=== PATIENT | female | born 1955 | race Caucasian/White ===

== ENCOUNTER → 2020-08-10 12:50 | Outpatient (BNVA) | payer OTHER, SELFPAY | PROVIDERS: PCP Internal Medicine; Referring Provider Internal Medicine; Visit Provider Nurse Practitioner Family | DX: K21.9 Gastro-esophageal reflux disease without esophagitis (principal) | CPT/HCPCS: 99212 ==

== ENCOUNTER → 2020-09-07 12:29 | Outpatient (BNVA) | payer SELFPAY | PROVIDERS: PCP Internal Medicine; Visit Provider Nurse Practitioner Family | DX: Z76.89 Persons encountering health services in other specified circumstances (principal) ==

== ENCOUNTER 2020-09-15 09:47 | Outpatient (REF) | payer OTHER, SELFPAY ==
[2020-09-15 11:22] LABS: Hemoglobin 13.2 g/dl (12.0-16.0); Mean Corpuscular HGB Conc 32.2 g/dl (31.0-35.0); Mean Corpuscular Hemoglobin 30.3 pg (27.0-33.0); Mean Corpuscular Volume 94.3 fL (80-98); Mean Platelet Volume 9.7 fL (9.4-12.3); Platelet Count 239 X10*3/uL (160-400); Red Blood Count 4.35 X10*6/uL (4.20-5.50); Red Cell Distribution Width 11.7 % (11.0-16.0); White Blood Count 6.3 X10*3/uL (4.8-10.8)
[2020-09-15 11:30] LABS: Glucose Urine UA NEG (NEG); Leukocyte Esterase Urine 1+ (NEG); Nitrite Urine NEG (NEG); Specific Gravity - Urine >= 1.030 (1.005-1.025); Urine Blood 2+ (NEG); Urine Ketones NEG (NEG); Urine Protein NEG (NEG-TRACE)
[2020-09-15 11:32] LABS: Appearance Urine HAZY; Color Urine YELLOW
[2020-09-15 11:38] LABS: Alanine Aminotransferase 29 U/L (0-31); Albumin Level 4.4 g/dL (3.5-5.0); Alkaline Phosphatase 67 U/L (39-117); Anion Gap 12 (12-20); Aspartate Amino Transferase 24 U/L (5-31); Bilirubin Total 0.7 mg/dL (0.0-1.0); Blood Urea Nitrogen 13 mg/dL (9-16); Calcium 8.8 mg/dL (8.4-10.2); Carbon Dioxide 27 mmol/L (22-29); Chloride 106 mmol/L (96-108); Cholesterol 211 mg/dL; Estimated Glomerular Filt Rate > 60; Glucose Fasting 102 mg/dL (60-99); HDL Cholesterol 71 mg/dL; LDL Cholesterol Calculated 106 mg/dl; Potassium 4.1 mmol/l (3.3-5.1); Sodium 141 mmol/L (135-145); Total Protein 6.9 g/dL (6.5-8.0); Triglycerides 172 mg/dL
[2020-09-15 11:48] LABS: Mucus Urine 3+ /LPF; Squamous Epithelial Cell Urine 2+ /LPF
[2020-09-15 11:58] LABS: Thyroid Stimulating Hormone 0.64 uIU/mL (0.32-4.0)
== END 2020-09-15 09:48 | disposition home or self-care (01) ==
LOC: HO.HMGCLDS 09:47
PROVIDERS: PCP Internal Medicine; Visit Provider Internal Medicine
DX: R07.2 Precordial pain (principal); E78.2 Mixed hyperlipidemia; I10 Essential (primary) hypertension; K21.9 Gastro-esophageal reflux disease without esophagitis; M54.16 Radiculopathy, lumbar region
CPT/HCPCS: 36415; 80053; 80061; 81001; 84443; 85027

== ENCOUNTER → 2020-12-16 15:38 | Outpatient (BNVA) | payer OTHER, SELFPAY | PROVIDERS: PCP Internal Medicine; Visit Provider Nurse Practitioner Family ==

== ENCOUNTER 2021-01-28 11:53 | Outpatient (REF) | payer MEDICARE, MEDICAID, SELFPAY ==
--- NOTE | ~2021-01-28 | US_ITS ---
EXAMINATION: US RETROPERITONEAL LIMITED (RENAL ONLY) CLINICAL INFORMATION: Nephrolithiasis. COMPARISON: Renal ultrasound 02/11/2020. Ultrasound kidneys and bladder 07/24/2019. TECHNIQUE: Real-time imaging of the kidneys. FINDINGS: RIGHT KIDNEY: 12.4 x 5.4 x 5.8 cm (SAG x AP x TRV). The kidney is normal in size, contour, and echogenicity. Renal cortical thickness is normal. No calculi or focal parenchymal lesions. No hydronephrosis. LEFT KIDNEY: 12.4 x 5.2 x 4.9 cm (SAG x AP x TRV). The kidney is normal in size, contour, and echogenicity. Renal cortical thickness is normal. There is a 1.1 x 0.7 x 1.3 cm peripelvic cyst. No renal calculi or hydronephrosis. US/US renal BI IMPRESSION: No stone seen. Small left renal cyst.
== END 2021-01-28 11:54 | disposition home or self-care (01) ==
LOC: HO.HMGCX 11:53
PROVIDERS: PCP Internal Medicine; Visit Provider Urology
DX: N20.0 Calculus of kidney (principal)
CPT/HCPCS: 76775

== ENCOUNTER 2021-02-26 10:19 | Outpatient (REF) | payer MEDICARE, MEDICAID, SELFPAY ==
[2021-02-26 11:41] LABS: Glucose Urine UA NEG (NEG); Leukocyte Esterase Urine TRACE (NEG); Nitrite Urine NEG (NEG); Specific Gravity - Urine >= 1.030 (1.005-1.025); Urine Blood 2+ (NEG); Urine Ketones NEG (NEG); Urine Protein TRACE MG/DL (NEG-TRACE)
[2021-02-26 11:46] LABS: Appearance Urine HAZY; Color Urine YELLOW
[2021-02-26 11:52] LABS: Hematocrit 41.6 % (37-47); Hemoglobin 13.3 g/dl (12.0-16.0); Mean Corpuscular Hemoglobin 30.2 pg (27.0-33.0); Mean Corpuscular Volume 94.3 fL (80-98); Mean Platelet Volume 9.5 fL (9.4-12.3); Platelet Count 270 X10*3/uL (160-400); Red Blood Count 4.41 X10*6/uL (4.20-5.50); Red Cell Distribution Width 12.1 % (11.0-16.0); White Blood Count 6.6 X10*3/uL (4.8-10.8)
[2021-02-26 12:02] LABS: Alanine Aminotransferase 32 U/L (0-31); Albumin Level 4.3 g/dL (3.5-5.0); Alkaline Phosphatase 74 U/L (39-117); Anion Gap 15 (12-20); Aspartate Amino Transferase 26 U/L (5-31); Bilirubin Total 0.6 mg/dL (0.0-1.0); Blood Urea Nitrogen 14 mg/dL (9-16); Calcium 9.4 mg/dL (8.4-10.2); Carbon Dioxide 22 mmol/L (22-29); Chloride 109 mmol/L (96-108); Cholesterol 272 mg/dL; Estimated Glomerular Filt Rate > 60; Glucose Fasting 103 mg/dL (60-99); HDL Cholesterol 75 mg/dL; LDL Cholesterol Calculated 156 mg/dl; Potassium 4.1 mmol/L (3.3-5.1); Sodium 142 mmol/L (135-145); Total Protein 6.9 g/dL (6.5-8.0); Triglycerides 206 mg/dL
[2021-02-26 12:16] LABS: Bacteria Urine TRACE /LPF; Squamous Epithelial Cell Urine 4+ /LPF
== END 2021-02-26 10:20 | disposition home or self-care (01) ==
LOC: HO.HMGCLDS 10:19
PROVIDERS: PCP Internal Medicine; Visit Provider Internal Medicine
DX: E78.00 Pure hypercholesterolemia, unspecified (principal); I10 Essential (primary) hypertension
CPT/HCPCS: 36415; 80053; 80061; 81001; 84443; 85027

== ENCOUNTER 2021-07-22 09:30 | Outpatient (REF) | payer MEDICARE, MEDICAID, SELFPAY ==
--- NOTE | ~2021-07-22 | XR_ITS ---
EXAMINATION: XR HIP, LEFT CLINICAL INFORMATION: Left hip strain/sprain COMPARISON: 06/26/2018 TECHNIQUE: Two views of the left hip. FINDINGS: No fracture or dislocation. The femoral head articulates appropriately with its acetabulum. There is narrowing of the joint space with sclerosis and osteophyte formation. The visualized left pelvis is intact. XR/XR hip LT min 2V IMPRESSION: Moderate degenerative changes at the left hip which are similar to previous.
[2021-07-22 10:39] LABS: Alkaline Phosphatase 65 U/L (39-117)
[2021-07-22 10:46] LABS: Cortisol Random 1.4 ug/dL
[2021-07-23 12:06] LABS: CA-125 39 U/mL (<35)
[2021-07-26 12:41] LABS: Calcium, Ionized 5.3 mg/dL (4.8-5.6)
[2021-07-28 17:02] LABS: Adrenocorticotropic Hormone <5 pg/mL (6-50)
== END 2021-07-22 09:31 | disposition home or self-care (01) ==
LOC: HO.LAB 09:30
PROVIDERS: PCP Internal Medicine; Visit Provider Neuromusculoskeletal Medicine, Sports Medicine
DX: S73.102D Unspecified sprain of left hip, subsequent encounter (principal); R53.0 Neoplastic (malignant) related fatigue; R51.9 Headache, unspecified
CPT/HCPCS: 36415; 73502; 82024; 82330; 82533; 84075; 85610; 86304

== ENCOUNTER 2021-07-27 09:55 | Outpatient (REF) | payer MEDICARE, MEDICAID, SELFPAY ==
[2021-07-27 11:30] LABS: Appearance Urine HAZY; Color Urine YELLOW; Glucose Urine UA NEG (NEG); Leukocyte Esterase Urine NEG (NEG); MANUAL DIFF FLAG NO; Nitrite Urine NEG (NEG); Specific Gravity - Urine 1.025 (1.005-1.025); UACC Culture Trigger NO; Urine Blood 2+ (NEG); Urine Ketones NEG (NEG); Urine Protein NEG (NEG-TRACE)
[2021-07-27 11:31] LABS: Basophils Percent Auto 0.2 % (0-2); Eosinophils Absolute Auto 0.1 X10*3/uL (0.0-0.4); Eosinophils Percent Auto 1.5 % (0-4); Hemoglobin 13.3 g/dl (12.0-16.0); Imm Gran Abs Auto 0.05 X10*3/uL (0.00-0.03); Imm Gran Pct Auto 0.6 % (0.0-0.4); Lymphocytes Absolute Auto 2.9 X10*3/uL (1.2-4.9); Lymphocytes Percent Auto 34.4 % (20-40); Mean Corpuscular HGB Conc 32.4 g/dl (31.0-35.0); Mean Corpuscular Hemoglobin 30.9 pg (27.0-33.0); Mean Corpuscular Volume 95.3 fL (80-98); Mean Platelet Volume 9.6 fL (9.4-12.3); Monocytes Absolute Auto 0.6 X10*3/uL (0.1-1.2); Monocytes Percent Auto 6.8 % (2-11); Neutrophils Absolute Auto 4.8 X10*3/uL (2.0-8.3); Neutrophils Percent Auto 56.5 % (45-73); Platelet Count 252 X10*3/uL (160-400); Red Cell Distribution Width 12.3 % (11.0-16.0); White Blood Count 8.4 X10*3/uL (4.8-10.8)
[2021-07-27 11:56] LABS: Bacteria Urine 1+ /LPF; Mucus Urine 2+ /LPF; Squamous Epithelial Cell Urine 3+ /LPF
[2021-07-27 12:04] LABS: Alanine Aminotransferase 24 U/L (0-31); Albumin Level 3.9 g/dL (3.5-5.0); Alkaline Phosphatase 59 U/L (39-117); Anion Gap 9 (12-20); Aspartate Amino Transferase 18 U/L (5-31); Bilirubin Total 0.6 mg/dL (0.0-1.0); Blood Urea Nitrogen 14 mg/dL (9-16); Calcium 9.2 mg/dL (8.4-10.2); Carbon Dioxide 29 mmol/L (22-29); Chloride 107 mmol/L (96-108); Cholesterol 183 mg/dL; Estimated Glomerular Filt Rate > 60; Glucose Fasting 95 mg/dL (60-99); HDL Cholesterol 66 mg/dL; LDL Cholesterol Calculated 93 mg/dl; Potassium 4.2 mmol/L (3.3-5.1); Sodium 141 mmol/L (135-145); Total Protein 6.1 g/dL (6.5-8.0); Triglycerides 120 mg/dL
== END 2021-07-27 09:56 | disposition home or self-care (01) ==
LOC: HO.HMGCLDS 09:55
PROVIDERS: PCP Internal Medicine; Visit Provider Internal Medicine
DX: E78.00 Pure hypercholesterolemia, unspecified (principal); I10 Essential (primary) hypertension
CPT/HCPCS: 36415; 80053; 80061; 81001; 85025

== ENCOUNTER 2021-08-10 21:05 | Emergency (ER) | payer MEDICARE, MEDICAID, SELFPAY ==
--- NOTE | ~2021-08-10 | XR_ITS ---
EXAMINATION: XR CHEST CLINICAL INFORMATION: Chest pain COMPARISON: 01/28/2019 TECHNIQUE: PA view of the chest FINDINGS: There is a prominence of the epicardial fat pad. No consolidation, pneumothorax, or pleural effusion. Cardiac and mediastinal contours are normal. Mild calcific atherosclerosis in the thoracic aorta Pulmonary vasculature is unremarkable. Osseous structures are unremarkable. XR/XR chest 1V IMPRESSION: No acute cardiopulmonary findings
--- NOTE | 2021-08-10 21:35 | ECG_ITS ---
Test Reason : CHEST PAIN Blood Pressure : / mmHG Vent. Rate : 057 BPM Atrial Rate : 057 BPM P-R Int : 160 ms QRS Dur : 088 ms QT Int : 464 ms P-R-T Axes : 043 050 069 degrees QTc Int : 451 ms Sinus bradycardia Nonspecific ST abnormality Abnormal ECG When compared with ECG of 02-JAN-2018 19:52, No significant change was found Referred By: Generic ED Physician Electronically Signed By:SANDRINE ACUÑA MD
[2021-08-10 21:54] LABS: MANUAL DIFF FLAG NO
[2021-08-10 21:55] LABS: Basophils Percent Auto 0.3 % (0-2); Eosinophils Percent Auto 0.4 % (0-4); Hematocrit 39.8 % (37.0-47.0); Hemoglobin 13.3 g/dl (12.0-16.0); Imm Gran Abs Auto 0.03 X10*3/uL (0.00-0.03); Imm Gran Pct Auto 0.3 % (0.0-0.4); Lymphocytes Absolute Auto 1.7 X10*3/uL (1.2-4.9); Lymphocytes Percent Auto 16.9 % (20-40); Mean Corpuscular HGB Conc 33.4 g/dl (31.0-35.0); Mean Corpuscular Hemoglobin 31.4 pg (27.0-33.0); Mean Corpuscular Volume 93.9 fL (80.0-98.0); Mean Platelet Volume 9.1 fL (9.4-12.3); Monocytes Absolute Auto 0.5 X10*3/uL (0.1-1.2); Neutrophils Absolute Auto 7.8 x10*3/uL (2.0-8.3); Neutrophils Percent Auto 77.1 % (45-73); Platelet Count 215 X10*3/uL (160-400); Red Blood Count 4.24 X10*6/uL (4.20-5.50); Red Cell Distribution Width 12.3 % (11.0-16.0); White Blood Count 10.1 X10*3/uL (4.8-10.8)
[2021-08-10 22:03] VITALS: BP 158/71; PULSE 64; RESP 22; TEMP 36.6; O2SAT 96; BMI 28.7
[2021-08-10 22:07] LABS: Anion Gap 15 (12-20); Blood Urea Nitrogen 14 mg/dL (9-16); Calcium 9.1 mg/dL (8.4-10.2); Carbon Dioxide 23 mmol/L (22-29); Chloride 106 mmol/L (96-108); Estimated Glomerular Filt Rate > 60; Glucose Random 129 mg/dL (60-115); Potassium 3.9 mmol/L (3.3-5.1); Sodium 140 mmol/L (135-145)
[2021-08-10 22:14] LABS: Troponin-I High Sensitivity < 3.5 ng/L (<3.5-17.0)
--- NOTE | 2021-08-10 22:15 | ED.CHESTPAIN ---
HPI - Chest Pain General Chief Complaint: Chest Pain Stated Complaint: cp Time Seen by Provider: 08/10/21 22:15 Source: patient Mode of arrival: ambulatory Limitations: no limitations History of Present Illness HPI narrative: Patient is 66 years old history of coronary artery disease status post stent placement in 2014 with history of GERD supposed to get endoscopy but she missed the appointment on omeprazole had stress test 2 years ago everything was fine it comes here after she had drinks last night since morning 10:00 o'clock been complaining of epigastric pain going to the mid chest no radiation of pain to the back to the jaw or to the left arm , mild shortness of breath+ no cough no fever no chills pain gets worse when she eats no black stools Related Data Previous Rx's Medication Instructions Recorded meloxicam 15 mg tablet 15 mg PO DAILY #30 tab 10/06/20 trazodone 50 mg tablet 50 mg PO BEDTIME PRN #90 tab 10/08/20 lidocaine 5 % topical patch 1 patch TOPICAL DAILY #30 ea 11/17/20 (Lidoderm) amlodipine 5 mg tablet 5 mg PO DAILY #90 tab 11/19/20 atorvastatin 80 mg tablet 80 mg PO DAILY #90 tab 11/19/20 omeprazole 20 mg capsule,delayed 20 mg PO BID #180 cap 11/19/20 release ropinirole 0.5 mg tablet 0.5 mg PO BEDTIME #90 tab 11/19/20 metoprolol succinate 50 mg 50 mg PO DAILY #90 tab 01/28/21 tablet,extended release 24 hr pyridoxine (vitamin B6) 100 mg 100 mg PO .QD #90 tab 07/29/21 tablet amoxicillin 500 mg tablet 1,000 mg PO BID #56 tab 08/11/21 clarithromycin 500 mg tablet 500 mg PO BID #28 tab 08/11/21 omeprazole 40 mg capsule,delayed 40 mg PO DAILY #30 cap 08/11/21 release sucralfate 1 gram tablet 1 g PO TID #90 tab 08/11/21 Allergies Allergy/AdvReac Type Severity Reaction Status Date / Time acetaminophen [From VICODIN] Allergy Unknown UNK Verified 08/10/21 22:02 hydrocodone [From VICODIN] Allergy Unknown UNK Verified 08/10/21 22:02 oxycodone [From PERCOCET] Allergy Unknown UNK Verified 08/10/21 22:02 Review of Systems Review of Systems: Yes all other systems are reviewed and are negative FOR[facility]LY [facility] Past Medical History Medical History Annual physical exam Gastroesophageal reflux disease GERD (gastroesophageal reflux disease) HTN (hypertension) Hypercholesteremia Lumbar disc disease Osteoarthritis, hip, bilateral Surgical History H/O colonoscopy Hx of cholecystectomy Hx of cholecystectomy Family History Family History Father High blood pressure Degenerative cervical spinal stenosis Heartburn Mother Heart problem Sister High blood pressure Daughter No problems noted. Daughter No problems noted. Daughter No problems noted. Social History Social History Household Members: Spouse Housing: House Alcohol intake: former Patient Tobacco Use Status: Never used Tobacco Years Smoked: 30 years Use of substances other than those prescribed or required for medical reasons: No Advance Directives: No Advance Directives Information Provided: Yes Physical Exam Vital Signs: Vital Signs: Last Vital Signs Temp 97.8 F 08/10/21 22:03 Pulse 64 08/10/21 22:03 Resp 22 H 08/10/21 22:03 BP 158/71 H 08/10/21 22:03 Pulse Ox 96 08/10/21 22:03 Body Mass Index 28.7 Appearance: Alert. Oriented X3. No acute distress. Eyes: No pallor or icterus ENT: Pharynx normal. Oral Mucosa moist Neck: Normal inspection. Neck supple. CVS: Normal heart rate and rhythm. Pulses normal. Respiratory: No respiratory distress. Equal air entry bilateral, no wheezing/rales/rhonchi Abdomen: Soft and epigastric tenderness++ Bowel sounds are present, no mass palpable, no CVA tenderness Skin: Skin warm and dry. Normal skin color. Normal skin turgor. Extremities: No lower extremity edema. No calf tenderness Neuro: Oriented X 3. No motor deficit. MDM - Chest Pain MDM Narrative Medical decision making narrative: . Atypical chest pain with alcohol use with history of gastritis pain likely from gastritis questionable H pylori infection. Initial troponin is negative will repeat a troponin 2 hours. EKG without any ischemic changes And00:42: Repeat high sensitive troponin negative for any acute change patient is sleeping now no chest pain felt better after Maalox. Will discharge patient home on treatment for H pylori as suspected Lab Data Attestation: I reviewed the patient's lab results. Result diagrams: 08/10/21 21:49 08/10/21 21:49 Labs: Lab Results 08/10/21 08/10/21 08/10/21 Range/Units 21:49 21:49 21:49 WBC 10.1 (4.8-10.8) X10*3/uL RBC 4.24 (4.20-5.50) X10*6/uL Hgb 13.3 (12.0-16.0) g/dl Hct 39.8 (37.0-47.0) % MCV 93.9 (80.0-98.0) fL MCH 31.4 (27.0-33.0) pg MCHC 33.4 (31.0-35.0) g/dl RDW 12.3 (11.0-16.0) % Plt Count 215 (160-400) X10*3/uL MPV 9.1 L (9.4-12.3) fL Immature Gran % (Auto) 0.3 (0.0-0.4) % Neut % (Auto) 77.1 H (45-73) % Lymph % (Auto) 16.9 L (20-40) % Mcdonough % (Auto) 5.0 (2-11) % Eos % (Auto) 0.4 (0-4) % Baso % (Auto) 0.3 (0-2) % Lymph # (Auto) 1.7 (1.2-4.9) X10*3/uL Mcdonough # (Auto) 0.5 (0.1-1.2) X10*3/uL Eos # (Auto) 0.0 (0.0-0.4) X10*3/uL Baso # (Auto) 0.0 (0.0-0.2) X10*3/uL Abs Immat Gran (auto) 0.03 (0.00-0.03) X10*3/uL Absolute Neuts (auto) 7.8 (2.0-8.3) x10*3/uL Absolute Nucleated RBC 0.000 (0.0-0.012) X10*3/uL Nucleated RBC % (auto) 0.0 (0.0-0.2) /100WBC Sodium 140 (135-145) mmol/L Potassium 3.9 (3.3-5.1) mmol/L Chloride 106 (96-108) mmol/L Carbon Dioxide 23 (22-29) mmol/L Anion Gap 15 (12-20) BUN 14 (9-16) mg/dL Creatinine 0.81 (0.5-1.4) mg/dL Estim Creat Clear Calc TNP Estimated GFR > 60 Random Glucose 129 H (60-115) mg/dL Calcium 9.1 (8.4-10.2) mg/dL Total Bilirubin 0.7 (0.0-1.0) mg/dL Direct Bilirubin 0.2 (0.0-0.5) mg/dL AST 31 D (5-31) U/L ALT 49 H (0-31) U/L Alkaline Phosphatase 67 (39-117) U/L Troponin I High Sens < 3.5 (<3.5-17.0) ng/L Total Protein 6.7 (6.5-8.0) g/dL Albumin 4.1 (3.5-5.0) g/dL Lipase 15 (8-78) U/L 08/11/21 Range/Units 00:06 WBC (4.8-10.8) X10*3/uL RBC (4.20-5.50) X10*6/uL Hgb (12.0-16.0) g/dl Hct (37.0-47.0) % MCV (80.0-98.0) fL MCH (27.0-33.0) pg MCHC (31.0-35.0) g/dl RDW (11.0-16.0) % Plt Count (160-400) X10*3/uL MPV (9.4-12.3) fL Immature Gran % (Auto) (0.0-0.4) % Neut % (Auto) (45-73) % Lymph % (Auto) (20-40) % Mcdonough % (Auto) (2-11) % Eos % (Auto) (0-4) % Baso % (Auto) (0-2) % Lymph # (Auto) (1.2-4.9) X10*3/uL Mcdonough # (Auto) (0.1-1.2) X10*3/uL Eos # (Auto) (0.0-0.4) X10*3/uL Baso # (Auto) (0.0-0.2) X10*3/uL Abs Immat Gran (auto) (0.00-0.03) X10*3/uL Absolute Neuts (auto) (2.0-8.3) x10*3/uL Absolute Nucleated RBC (0.0-0.012) X10*3/uL Nucleated RBC % (auto) (0.0-0.2) /100WBC Sodium (135-145) mmol/L Potassium (3.3-5.1) mmol/L Chloride (96-108) mmol/L Carbon Dioxide (22-29) mmol/L Anion Gap (12-20) BUN (9-16) mg/dL Creatinine (0.5-1.4) mg/dL Estim Creat Clear Calc Estimated GFR Random Glucose (60-115) mg/dL Calcium (8.4-10.2) mg/dL Total Bilirubin (0.0-1.0) mg/dL Direct Bilirubin (0.0-0.5) mg/dL AST (5-31) U/L ALT (0-31) U/L Alkaline Phosphatase (39-117) U/L Troponin I High Sens < 3.5 (<3.5-17.0) ng/L Total Protein (6.5-8.0) g/dL Albumin (3.5-5.0) g/dL Lipase (8-78) U/L ECG Data ECG #1: Attestation: I personally reviewed and interpreted this ECG as follows: Interpretation: Sinus bradycardia heart rate 57 beats per minute normal intervals normal axis no acute ST-T changes no acute ischemia Discharge Plan Discharge Clinical Impression: Chronic GERD Chest pain Qualifiers: Chest pain type: precordial pain Qualified Code(s): R07.2 - Precordial pain Patient Disposition: Home, Self-Care Instructions: Chest Pain (ED), Gastroesophageal Reflux Disease (ED) Additional Instructions: Stop drinking alcohol Take medication for possible H pylori infection Follow-up with glassware finisher for further evaluation Follow-up with tool polishing machine operator for endoscopy as scheduled Prescriptions: New omeprazole 40 mg capsule,delayed release(DR/EC) 40 mg PO DAILY Qty: 30 RF: 0 clarithromycin 500 mg tablet 500 mg PO BID Qty: 28 RF: 0 amoxicillin 500 mg tablet 1,000 mg PO BID Qty: 56 RF: 0 sucralfate 1 gram tablet 1 g PO TID Qty: 90 RF: 0 No Action meloxicam 15 mg tablet 15 mg PO DAILY Qty: 30 RF: 3 trazodone 50 mg tablet 50 mg PO BEDTIME PRN (Reason: insomnia) Qty: 90 RF: 3 lidocaine [Lidoderm] 5 % adhesive patch,medicated 1 patch topical DAILY Qty: 30 RF: 3 metoprolol succinate 50 mg tablet extended release 24 hr 50 mg PO DAILY Qty: 90 RF: 3 pyridoxine (vitamin B6) 100 mg tablet 100 mg PO .QD Qty: 90 RF: 4 amlodipine 5 mg tablet 5 mg PO DAILY Qty: 90 RF: 3 atorvastatin 80 mg tablet 80 mg PO DAILY Qty: 90 RF: 3 omeprazole 20 mg capsule,delayed release(DR/EC) 20 mg PO BID Qty: 180 RF: 3 ropinirole 0.5 mg tablet 0.5 mg PO BEDTIME Qty: 90 RF: 4 Referrals: Yasmin Sinha MD [Physician] - 1 week
[2021-08-10 22:51] LABS: Alanine Aminotransferase 49 U/L (0-31); Albumin Level 4.1 g/dL (3.5-5.0); Alkaline Phosphatase 67 U/L (39-117); Aspartate Amino Transferase 31 U/L (5-31); Bilirubin Direct 0.2 mg/dL (0.0-0.5); Bilirubin Total 0.7 mg/dL (0.0-1.0); Lipase 15 U/L (8-78); Total Protein 6.7 g/dL (6.5-8.0)
[2021-08-10] MEDS: Famotidine/PF 20 MG/2 ML VIAL IVPUSH (23:45)
[2021-08-10] MEDS: ondansetron HCL 4 MG/2 ML VIAL IVPUSH (23:45)
[2021-08-10] MEDS: Magnesium Hydrox/Alum Hydrox 30 ML ORAL.SUSP PO (23:46)
[2021-08-10] MEDS: 0.9 % Sodium Chloride 1,000 ML 999 ML IVCONT (23:46)
[2021-08-11 00:34] LABS: Troponin-I High Sensitivity < 3.5 ng/L (<3.5-17.0)
--- NOTE | 2021-08-11 00:45 | PC.NURSE ---
The pt presents to the ED alert and oriented x 3 for evaluation of chest pressure since this morning. While in ED she appears well - respirations non-labored, speech clear and appropriate. She is taking PO fluids without difficulty [place]itanian is her primary language and her daughter is at the bedside to assist and translate. IVF's infusing, labs obtained and sent to lab. Will continue to monitoe.
== END 2021-08-11 00:50 | disposition home or self-care (01) ==
PROVIDERS: Emergency Provider Internal Medicine; PCP Internal Medicine
DX: R07.2 Precordial pain (principal); K21.9 Gastro-esophageal reflux disease without esophagitis; I10 Essential (primary) hypertension; I25.10 Atherosclerotic heart disease of native coronary artery without angina pectoris; Z95.5 Presence of coronary angioplasty implant and graft
CPT/HCPCS: 36415; 71045; 80048; 80076; 83690; 84484; 85025; 93005; 96361; 96374; 96375; 99284; J2405

== ENCOUNTER → 2021-08-11 08:36 | Outpatient (BNVA) | payer MEDICARE, MEDICAID, SELFPAY | PROVIDERS: PCP Internal Medicine | DX: N20.0 Calculus of kidney (principal) | CPT/HCPCS: Q3014 ==

== ENCOUNTER 2022-03-29 13:53 | Outpatient (REF) | payer MEDICARE, MEDICAID, SELFPAY ==
--- NOTE | ~2022-03-29 | US_ITS ---
EXAMINATION: US RETROPERITONEAL LIMITED (RENAL ONLY) CLINICAL INFORMATION: Renal stones. COMPARISON: Ultrasound renal 01/28/2021. Ultrasound renals only 02/11/2020. TECHNIQUE: Real-time imaging of the kidneys. FINDINGS: RIGHT KIDNEY: 11.4 x 5.2 x 4.6 cm (SAG x AP x TRV). The kidney is normal in size, contour, and echogenicity. Renal cortical thickness is normal. No calculi or focal parenchymal lesions. No hydronephrosis. There is mild prominence of the pyramids. LEFT KIDNEY: 11.1 x 4.6 x 4.4 cm (SAG x AP x TRV). The kidney is normal in size, contour, and echogenicity. Renal cortical thickness is normal. No renal calculi or hydronephrosis. There is a 1.1 cm simple-appearing cyst present within the inferior. US/US renal BI IMPRESSION: No renal calculi are appreciated. No evidence of obstructive uropathy. A 1.1 cm simple left renal cyst..
== END 2022-03-29 13:54 | disposition home or self-care (01) ==
LOC: HO.US 13:53
PROVIDERS: Visit Provider Internal Medicine
DX: N20.0 Calculus of kidney (principal)
CPT/HCPCS: 76775

== ENCOUNTER 2022-07-29 08:28 | Outpatient (REF) | payer MEDICARE, MEDICAID, SELFPAY ==
[2022-07-29 11:38] LABS: Hematocrit 42.7 % (37.0-47.0); Hemoglobin 13.7 g/dl (12.0-16.0); Mean Corpuscular HGB Conc 32.1 g/dl (31.0-35.0); Mean Corpuscular Hemoglobin 30.5 pg (27.0-33.0); Mean Corpuscular Volume 95.1 fL (80.0-98.0); Mean Platelet Volume 10.3 fL (9.4-12.3); Platelet Count 244 X10*3/uL (160-400); Red Blood Count 4.49 X10*6/uL (4.20-5.50); Red Cell Distribution Width 11.9 % (11.0-16.0); White Blood Count 8.4 X10*3/uL (4.8-10.8)
[2022-07-29 11:53] LABS: Appearance Urine Clear; Color Urine Yellow; Glucose Urine UA Negative (Negative); Leukocyte Esterase Urine Small (1+) (Negative); Nitrite Urine Negative (Negative); UMIC TRIGGER UA YES; Urine Blood Trace (Negative); Urine Ketones Negative (Negative); Urine Protein Negative (Neg-Trace)
[2022-07-29 12:03] LABS: Alanine Aminotransferase 40 U/L (0-31); Albumin Level 4.4 g/dL (3.5-5.0); Alkaline Phosphatase 67 U/L (39-117); Anion Gap 13 (12-20); Aspartate Amino Transferase 31 U/L (5-31); Bilirubin Total 0.6 mg/dL (0.0-1.0); Blood Urea Nitrogen 13 mg/dL (9-16); Calcium 9.5 mg/dL (8.4-10.2); Carbon Dioxide 27 mmol/L (22-29); Chloride 106 mmol/L (96-108); Cholesterol 233 mg/dL; Estimated Glomerular Filt Rate > 60; Glucose Fasting 101 mg/dL (60-99); HDL Cholesterol 64 mg/dL; LDL Cholesterol Calculated 131 mg/dl; Potassium 4.2 mmol/L (3.3-5.1); Sodium 142 mmol/L (135-145); Total Protein 6.9 g/dL (6.5-8.0); Triglycerides 191 mg/dL
[2022-07-29 12:23] LABS: Bacteria Urine None Seen (None Seen); Hyaline Casts Urine 0-2 /LPF (0-2); RBC Urine 0-2 /HPF (0-2); WBC Urine 0-5 /HPF (0-5)
== END 2022-07-29 08:29 | disposition home or self-care (01) ==
LOC: HO.HMGCLDS 08:28
PROVIDERS: PCP Internal Medicine; Visit Provider Internal Medicine
DX: E78.00 Pure hypercholesterolemia, unspecified (principal); I10 Essential (primary) hypertension
CPT/HCPCS: 36415; 80053; 80061; 81001; 84443; 85027

== ENCOUNTER 2023-02-06 07:41 | Outpatient (REF) | payer MEDICARE, MEDICAID, SELFPAY ==
[2023-02-06 11:15] LABS: MANUAL DIFF FLAG NO
[2023-02-06 11:43] LABS: Basophils Percent Auto 0.5 % (0-2); Eosinophils Absolute Auto 0.1 X10*3/uL (0.0-0.4); Eosinophils Percent Auto 1.5 % (0-4); Hemoglobin 13.4 g/dl (12.0-16.0); Imm Gran Abs Auto 0.01 X10*3/uL (0.00-0.03); Imm Gran Pct Auto 0.1 % (0.0-0.4); Lymphocytes Absolute Auto 2.5 X10*3/uL (1.2-4.9); Lymphocytes Percent Auto 33.6 % (20-40); Mean Corpuscular HGB Conc 31.9 g/dl (31.0-35.0); Mean Corpuscular Hemoglobin 29.9 pg (27.0-33.0); Mean Corpuscular Volume 93.8 fL (80.0-98.0); Monocytes Absolute Auto 0.6 X10*3/uL (0.1-1.2); Monocytes Percent Auto 7.7 % (2-11); Neutrophils Absolute Auto 4.2 x10*3/uL (2.0-8.3); Neutrophils Percent Auto 56.6 % (45-73); Platelet Count 243 X10*3/uL (160-400); Red Blood Count 4.48 X10*6/uL (4.20-5.50); Red Cell Distribution Width 12.7 % (11.0-16.0); White Blood Count 7.5 X10*3/uL (4.8-10.8)
[2023-02-06 12:29] LABS: Alanine Aminotransferase 26 U/L (0-31); Albumin Level 3.9 g/dL (3.5-5.0); Alkaline Phosphatase 71 U/L (39-117); Anion Gap 11 (12-20); Aspartate Amino Transferase 20 U/L (5-31); Bilirubin Total 0.6 mg/dL (0.0-1.0); Blood Urea Nitrogen 23 mg/dL (9-16); Calcium 9.4 mg/dL (8.4-10.2); Carbon Dioxide 28 mmol/L (22-29); Chloride 106 mmol/L (96-108); Cholesterol 259 mg/dL; Estimated Glomerular Filt Rate > 60; Glucose Fasting 96 mg/dL (60-99); HDL Cholesterol 58 mg/dL; LDL Cholesterol Calculated 156 mg/dl; Potassium 3.9 mmol/L (3.3-5.1); Sodium 141 mmol/L (135-145); Total Protein 6.2 g/dL (6.5-8.0); Triglycerides 229 mg/dL
[2023-02-06 12:33] LABS: TSH reflex Free T4 0.79 uIU/mL (0.32-4.0)
== END 2023-02-06 07:42 | disposition home or self-care (01) ==
LOC: HO.HMGCLDS 07:41
PROVIDERS: PCP Internal Medicine; Visit Provider Internal Medicine
DX: Z00.00 Encounter for general adult medical examination without abnormal findings (principal); I10 Essential (primary) hypertension; E78.00 Pure hypercholesterolemia, unspecified
CPT/HCPCS: 36415; 80053; 80061; 84443; 85025

== ENCOUNTER 2023-09-29 11:52 | Outpatient (REF) | payer MEDICARE, MEDICAID, SELFPAY ==
--- NOTE | ~2023-09-29 | MM_ITS ---
EXAMINATION: MM SCREENING DIGITAL BREAST TOMOSYNTHESIS, BILATERAL CLINICAL INFORMATION: Screening. Asymptomatic. History of benign needle biopsy left breast 7:00 axis. COMPARISON: Mammography: 03/23/2019, 02/08/2017 ([place]) TECHNIQUE: Digital breast tomosynthesis is performed in both the craniocaudal and mediolateral oblique views along with computer-aided detection (CAD). Synthesized 2D images are generated from the tomosynthesis. FINDINGS: There are scattered areas of fibroglandular density (ACR BI-RADS breast composition Category b). There is a post benign biopsy clip in the far anterior inferomedial left breast. There are no suspicious masses, suspicious grouped calcifications, or areas of architectural distortion in either breast. The parenchymal pattern is stable from prior exams. MM/MM tomosynthesis screening BI IMPRESSION: No mammographic evidence of malignancy. Stable benign findings ASSESSMENT: BI-RADS BI-RADS 2 - Benign Findings RECOMMENDATION: Routine annual mammography screening. 1 year F/U This examination should not preclude the clinical evaluation of a suspicious palpable abnormality. This patient's information was entered into a reminder system with a target due date for their next mammogram.
== END 2023-09-29 11:53 | disposition home or self-care (01) ==
LOC: HO.MAMMO 11:52
PROVIDERS: PCP Internal Medicine; Visit Provider Internal Medicine
DX: Z12.31 Encounter for screening mammogram for malignant neoplasm of breast (principal)
CPT/HCPCS: 77063; 77067

== ENCOUNTER → 2023-09-29 12:00 | Outpatient (BNV) | payer MEDICARE, MEDICAID, SELFPAY | PROVIDERS: PCP Internal Medicine; Visit Provider Radiology Diagnostic Radiology | DX: Z12.31 Encounter for screening mammogram for malignant neoplasm of breast (principal) | CPT/HCPCS: 77063; 77067 ==

== ENCOUNTER 2023-10-24 08:49 | Outpatient (AMB) | payer MEDICARE, SELFPAY ==
--- NOTE | 2023-10-24 08:50 | A.OFFPC_ITS ---
Vital Signs 10/24/23 08:51 Height 5 ft 3 in Intake Visit Reasons: AWV [id number] Allergies acetaminophen [From VICODIN] Allergy (Unknown, Verified 02/09/23 10:07) nausea confused hydrocodone [From VICODIN] Allergy (Unknown, Verified 02/09/23 10:07) nausea confused oxycodone [From PERCOCET] Allergy (Unknown, Verified 02/09/23 10:07) nausea, vomiting confused Tobacco use date assessed: 11/01/22 [facility] Medical History (Updated 11/01/22 @ 13:06 by Sherry Cano MD) Ingrown toenail of left foot Bilateral nephrolithiasis Annual physical exam Osteoarthritis, hip, bilateral Gastroesophageal reflux disease Lumbar disc disease Hypercholesteremia HTN (hypertension) GERD (gastroesophageal reflux disease) Surgical History H/O colonoscopy Hx of cholecystectomy Hx of cholecystectomy Family History Father High blood pressure Degenerative cervical spinal stenosis Heartburn Mother Heart problem Sister High blood pressure Daughter No problems noted. Daughter No problems noted. Daughter No problems noted. Social History Household Members: Spouse Housing: House Alcohol intake: former Patient Tobacco Use Status: Never used Tobacco Years Smoked: 30 years e-Cigarette/Vaping Use: Never Used Current occupational status: retired Cognitive needs: No Hearing needs: No Vision needs: Yes Questionnaire Thrive Questionnaire Date Thrive assessed: 11/01/22 MICHAEL-7 AMB Questionnaire MICHAEL-7 Date MICHALE - 7 assessed: 11/01/22 Source: Developed by Drs. Yimi Mathew, Ligia Corona, Alessio Burger and colleagues, with an educational sita from [employer]. Physical exam (Primary Care) Tobacco/Smoking Status: Tobacco use Status Tobacco use date assessed 11/01/22 02/09/23 10:06 Patient Tobacco Use Status Never used Tobacco 02/09/23 10:06 e-Cigarette/Vaping Use Never Used 02/09/23 10:06 Thrive Assessment: Date of Thrive Assessment Date Thrive assessed 11/01/22 02/09/23 10:06 Coding
[2023-10-24 08:51] VITALS: BP 144/76; PULSE 68; O2SAT 98; BMI 29.9
--- NOTE | 2023-10-24 08:57 | AM.OFFVISMDC ---
Intake Vital Signs 10/24/23 08:51 Height 5 ft 3 in Weight 169 lb BMI 29.9 BP 144/76 H Blood Pressure Location Lt brachial Position Sitting Pulse 68 Pulse Source Pulse Oximeter Pulse Oximetry (%) 98 Oxygen Delivery Method Room Air Intake Visit Reasons: AWV [id number] Allergies acetaminophen [From VICODIN] Allergy (Unknown, Verified 10/24/23 08:57) nausea confused hydrocodone [From VICODIN] Allergy (Unknown, Verified 10/24/23 08:57) nausea confused oxycodone [From PERCOCET] Allergy (Unknown, Verified 10/24/23 08:57) nausea, vomiting confused HPI HPI Comments History of Present Illness Details Initiated the conversation about Advanced Directives. Advanced Directives help? patients prepare for current and future decisions about their medical treatment? and place of care. Discussed with patient that it is a process where a patients? current condition and prognosis are reviewed, their wishes for information? regarding their illness are elicited, and likely medical dilemmas are presented? and options discussed. The form can be amended as needed, reviewed yearly and? make changes as needed IPPE/AWV ? year old presents? for her ? Annual? Wellness Visit, initial visit.? Medical / Social History Reviewed? Past Medical History ?Yes? . ? [place]? of Care / Care Team list updated ?Yes . ? Surgical/Hospitalization? History ?Yes . ? Current Medications? (including OTC and supplements) ?Yes . ? Family History ?Yes? . ? Tobacco? Control form ?Yes . ? AUDIT-C (Alcohol use) form? ?Yes . ? Illicit drug use in Social? History ?Yes . ? Current diagnosis of? depression? ?No ? Appropriate PHQ2/PHQ9? completed ?Yes . ? Data entered by ?Medical? Book Sales[employer] and reviewed by provider ? Fall Risk ? Fall? History? Have you had any falls with? injury in the past year? ?No . ? Have you had two or more? falls in the past year? ?No . ? Fall Risk Assessment: ?No? falls in the past year . ? HRA filled out by? the patient, reviewed by Provider and scanned. ? IPPE/AWV ? Balance? [place]? ?Yes . ? Tandem? walk ?Yes . ? Walk and? Turn ?Yes . ? Rise from? sit to stand ?Yes . ?Vision? Corrective? lens ?Yes ? Vision? screen ? Up-to-date, has an appointment [] for vision? screening and glaucoma screening ?Hearing? Whisper? test ?pass .? Initiated the conversation about Advanced Directives. Advanced Directives help? patients prepare for current and future decisions about their medical treatment? and place of care. Discussed with patient that it is a process where a patients? current condition and prognosis are reviewed, their wishes for information? regarding their illness are elicited, and likely medical dilemmas are presented? and options discussed. The form can be amended as needed, reviewed yearly and? make changes as needed Written? Plan?Completed. See Patient? Documents. [facility] Medical History (Updated 10/24/23 @ 09:48 by Sherry Cano MD) Ingrown toenail of left foot Bilateral nephrolithiasis Annual physical exam Osteoarthritis, hip, bilateral Gastroesophageal reflux disease Lumbar disc disease Hypercholesteremia HTN (hypertension) GERD (gastroesophageal reflux disease) Surgical History H/O colonoscopy Hx of cholecystectomy Hx of cholecystectomy Family History Father High blood pressure Degenerative cervical spinal stenosis Heartburn Mother Heart problem Sister High blood pressure Daughter No problems noted. Daughter No problems noted. Daughter No problems noted. Social History Household Members: Spouse Housing: House Alcohol intake: former Patient Tobacco Use Status: Never used Tobacco Years Smoked: 30 years e-Cigarette/Vaping Use: Never Used Current occupational status: retired Cognitive needs: No Hearing needs: No Vision needs: Yes Questionnaire Medicare Wellness Checkup [age] What gender do you identify with?: female During the past 4 weeks, how much have you been bothered by emotional problems such as feeling anxious, depressed, irritable, sad or downhearted, and blue?: not at all During the past 4 weeks, has your physical & emotional health limited your social activities with family, friends, neighbors, or groups?: not at all During the past 4 weeks, how much bodily pain have you generally had?: mild pain During the past 4 weeks, was someone available to help you if you needed & wanted help?: yes, as much as I wanted During the past 4 weeks, what was the hardest physical activity you could do for at least 2 minutes?: light Can you get to places out of walking distance without help? (For eg., can you travel alone on buses, taxis or drive your car?): Yes Can you go shopping for groceries or clothes without someone's help?: Yes Can you prepare your own meals?: Yes Can you do your housework without help?: Yes Because of any health problems, do you need the help of another person with your personal care needs such as eating, bathing, dressing or getting around the house?: No Can you handle your own money without help?: Yes During the past 4 weeks, how would you rate your health in general?: good During the past 4 weeks how have things been going for you?: good & bad parts about equal Are you having difficulties driving your car?: no Do you always fasten your seat belt when you are in a car?: yes, usually During past 4 weeks, have you been bothered by the following: never: Falling or dizzy when standing up, Sexual problems?, Trouble eating well?, Teeth or denture problems?, Problems using the telephone? and Tiredness or fatigue? Have you fallen 2 or more times in the past year?: No Are you afraid of falling?: No Are you a smoker?: no During the past 4 weeks, how many drinks of wine, beer, or other alcoholic beverages did you have?: 1 drink or less per week Do you exercise for about 20 minutes 3 or more times a week?: no, I usually do not exercise this much Have you been given information to help with the following?: no: Hazards in your house that might hurt you? and no: Keeping track of your medications? How often do you have trouble taking medicines the way you have been told to take them?: I always take medicine as prescribed How confident are you that you can control & manage most of your health problems?: very confident What is your race?: White Mini Mental State Exam (MMSE) Orientation What is the (year) (season) (date) (day) (month)?: year, season, date, day and month Where are we (state) (county) (town or city) (hospital) (floor)?: state, county, town or city, hospital/clinic and floor Registration Name of 3 unrelated objects clearly and slowly, then ask patient to repeat all 3 of them. (1st repeat determines score. Make sure they can repeat all three): object 1, object 2 and object 3 Recall Ask patient to repeat the 3 items from question #3.: object 1, object 2 and object 3 Language Show patient a wristwatch & ask what it is. Repeat for pencil.: watch and pencil Ask the patient to repeat the phrase 'No ifs, ands, or buts' after you.: correct Ask the patient to 'take a piece of paper with their right hand' 'fold paper in half' 'place paper on floor': take paper in right hand, fold paper in half and place paper on floor Print the sentence 'CLOSE YOUR EYES' on a piece. If patient actually closes eyes then score.: followed written direction Give patient a blank piece of paper & ask to write a sentence. Score if it contains a noun & verb.: sentence contains subject and verb Score Score: 24 Activity of Daily Living Bathing - sponge bath, tub bath or shower: receives no assistance (gets in/out by self, if usual bathing means Dressing - getting clothes from closets & drawers, including inner/outer garments & fasteners.: gets clothes & gets completely dressed without help Toileting - going to the 'toilet room' for urine/bowel elimination & cleaning self/arranging clothes: goes to toilet room, cleans self, arranges clothes without help Transfer: moves in & out of bed and chair without help (may use support object) Continence: controls urination/bowel movements completely by self Feeding: feeds self without help Total Score: 0 Information obtained from: patient Using telephone: independent Traveling: independent Shopping: independent Preparing meals: independent Housework: independent Taking medicine: independent Managing money: independent PHQ-9 Over the last 2 weeks, how often have you been bothered by any of the following problems? 1. Little interest or pleasure in doing things: not at all 2. Feeling down, depressed, or hopeless: not at all 3. Trouble falling or staying asleep, or sleeping too much: not at all 4. Feeling tired or having little energy: not at all 5. Poor appetite or overeating: not at all 6. Feeling bad about yourself - or that you are a failure or have let yourself or your family down: not at all 7. Trouble concentrating on things, such as reading the newspaper or watching television: not at all 8. Moving or speaking so slowly that other people could have noticed. Or the opposite - being so fidgety or restless that you have been moving around a lot more than usual: not at all 9. Thoughts that you would be better off or of hurting yourself in some way: not at all Total score: 0 Depression Screening Interpretation: Negative Depression Screening Done: Yes Source: Developed by Drs. Yimi Mathew, Ligia Corona, Alessio Burger and colleagues, with an educational sita from [email or web address]. Review of Systems Const All systems reviewed & are unremarkable except as noted in HPI and below Reports no additional complaints Eyes Reports no additional complaints ENT Reports no additional complaints Card Reports no additional complaints Resp Reports no additional complaints GI Reports no additional complaints Reports no additional complaints Physical Exam Vital Signs: Last Vital Signs Pulse 68 10/24/23 08:51 BP 144/76 H 10/24/23 08:51 Pulse Ox 98 10/24/23 08:51 Oxygen Delivery Method Room Air 10/24/23 08:51 BMI result Body Mass Index 29.9 Const General: no acute distress HEENT Head: Yes normal to inspection Ears: hearing grossly normal bilaterally Neck Neck: Yes no lymphadenopathy and Yes supple Resp Effort & Inspection: normal respiratory effort Auscultation: clear to auscultation bilaterally Cardio Rhythm: regular rhythm Heart sounds: S1 normal heart sound present and S2 normal heart sound present GI Inspection: Yes normal to inspection Palpation (GI): Soft to palpation Percussion: Yes normal to percussion Auscultation: normal bowel sounds Extrem General: Yes no clubbing, cyanosis or edema Assessment & Plan Assessment & Plan (1) Annual physical exam: Code(s): Z00.00 - Encounter for general adult medical examination without abnormal findings Plan: Well-balanced diet regular physical activity discussed with the patient. Patient is up-to-date with mammogram and declined colonoscopy (2) Hypercholesteremia: Code(s): E78.00 - Pure hypercholesterolemia, unspecified Plan: Continue statin. patient will have blood work for lipid profile tomorrow if LDL is over 100 Zetia will be added. (3) HTN (hypertension): Code(s): I10 - Essential (primary) hypertension Plan: Continue current medications (4) Colonoscopy refused: Comment: 10/25, Cologuard ordered Code(s): Z53.20 - Procedure and treatment not carried out because of patient's decision for unspecified reasons Plan: Cologuard ordered Orders: Orders Lipid Panel Today E78.00 - Pure hypercholesterolemia, unspecified, I10 - Essential (primary) hypertension, Z00.00 - Encounter for general adult medical examination without abnormal findings Complete Blood Count Auto Diff Today E78.00 - Pure hypercholesterolemia, unspecified, I10 - Essential (primary) hypertension, Z00.00 - Encounter for general adult medical examination without abnormal findings IRON PROFILE Today E78.00 - Pure hypercholesterolemia, unspecified, I10 - Essential (primary) hypertension, Z00.00 - Encounter for general adult medical examination without abnormal findings Comprehensive [place]. Panel Fast Today E78.00 - Pure hypercholesterolemia, unspecified, I10 - Essential (primary) hypertension, Z00.00 - Encounter for general adult medical examination without abnormal findings Referrals Cologuard Test Z12.11 - Encounter for screening for malignant neoplasm of colon, Z12.12 - Encounter for screening for malignant neoplasm of rectum Medications: Refilled lidocaine 5% (Lidoderm) leave on most painful area for up to 12 hrs 1 patch topical DAILY 90 ea 3RF M51.9 - Unspecified thoracic, thoracolumbar and lumbosacral intervertebral disc disorder metoprolol tartrate 25 mg PO BID 180 tabs 3RF Quality Reporting (2019) Depression/Bipolar (159/160/161/177) PHQ-9: Total score: 0 Coding Level of Care Code Medicare Subsequent (G0439) Diagnoses Annual physical exam Z00.00 Hypercholesteremia E78.00 HTN (hypertension) I10 Colonoscopy refused Z53.20 CPT Codes Advance Care Planning - Time spent: 1-15 minutes, not on file ([id number]) Advance Care Planning Advance Care Planning discussion: Exists, not on file Forms completed: Health Care Proxy Time spent: 1-15 minutes, not on file
== END 2023-10-24 09:49 | disposition home or self-care (01) ==
PROVIDERS: PCP Internal Medicine; Visit Provider Internal Medicine
DX: Z00.00 Encounter for general adult medical examination without abnormal findings (principal); E78.00 Pure hypercholesterolemia, unspecified; I10 Essential (primary) hypertension; Z53.20 Procedure and treatment not carried out because of patient's decision for unspecified reasons
CPT/HCPCS: 1124F; G0439

== ENCOUNTER 2024-01-26 08:20 | Outpatient (REF) | payer MEDICARE, MEDICAID, SELFPAY ==
[2024-01-26 10:25] LABS: MANUAL DIFF FLAG NO
[2024-01-26 10:36] LABS: Basophils Percent Auto 0.5 % (0-2); Eosinophils Absolute Auto 0.1 X10*3/uL (0.0-0.4); Eosinophils Percent Auto 1.7 % (0-4); Hematocrit 43.6 % (37.0-47.0); Hemoglobin 14.5 g/dl (12.0-16.0); Imm Gran Abs Auto 0.01 X10*3/uL (0.00-0.03); Imm Gran Pct Auto 0.1 % (0.0-0.4); Lymphocytes Absolute Auto 2.6 X10*3/uL (1.2-4.9); Lymphocytes Percent Auto 34.1 % (20-40); Mean Corpuscular HGB Conc 33.3 g/dl (31.0-35.0); Mean Corpuscular Hemoglobin 30.8 pg (27.0-33.0); Mean Corpuscular Volume 92.6 fL (80.0-98.0); Mean Platelet Volume 9.9 fL (9.4-12.3); Monocytes Absolute Auto 0.5 X10*3/uL (0.1-1.2); Monocytes Percent Auto 6.9 % (2-11); Neutrophils Absolute Auto 4.4 x10*3/uL (2.0-8.3); Neutrophils Percent Auto 56.7 % (45-73); Platelet Count 257 X10*3/uL (160-400); Red Blood Count 4.71 X10*6/uL (4.20-5.50); Red Cell Distribution Width 11.7 % (11.0-16.0); White Blood Count 7.7 X10*3/uL (4.8-10.8)
[2024-01-26 11:04] LABS: Alanine Aminotransferase 33 U/L (0-31); Albumin Level 4.3 g/dL (3.5-5.0); Alkaline Phosphatase 66 U/L (39-117); Anion Gap 12 (12-20); Aspartate Amino Transferase 24 U/L (5-31); Bilirubin Total 0.5 mg/dL (0.0-1.0); Blood Urea Nitrogen 16 mg/dL (9-16); Calcium 9.4 mg/dL (8.4-10.2); Carbon Dioxide 26 mmol/L (22-29); Chloride 107 mmol/L (96-108); Cholesterol 240 mg/dL (<200); Estimated Glomerular Filt Rate > 60; Glucose Fasting 108 mg/dL (60-99); HDL Cholesterol 60 mg/dL (>40); Iron 88 mcg/dL (30-160); LDL Cholesterol Calculated 140 mg/dL (<100); Percent Iron Saturation 29 % (15-50); Potassium 3.8 mmol/L (3.3-5.1); Sodium 141 mmol/L (135-145); Total Iron Binding Capacity 306 mcg/dL (228-428); Total Protein 7.2 g/dL (6.5-8.0); Triglycerides 204 mg/dL (<150); Unsaturated Iron Binding 218 ug/dL
== END 2024-01-26 08:21 | disposition home or self-care (01) ==
LOC: HO.HMGCLDS 08:20
PROVIDERS: PCP Internal Medicine; Visit Provider Internal Medicine
DX: Z00.00 Encounter for general adult medical examination without abnormal findings (principal); E78.00 Pure hypercholesterolemia, unspecified; I10 Essential (primary) hypertension
CPT/HCPCS: 36415; 80053; 80061; 83540; 85025

== ENCOUNTER 2024-02-06 13:20 | Outpatient (AMB) | payer MEDICARE, SELFPAY ==
[2024-02-06 13:26] VITALS: BP 112/64; PULSE 64; O2SAT 96; BMI 31.5
--- NOTE | 2024-02-06 13:26 | MHC.PC.OV ---
Vital Signs 02/06/24 13:26 Height 5 ft 3 in Weight 178 lb BMI 31.5 BP 112/64 Blood Pressure Location Rt brachial Position Sitting Pulse 64 Pulse Source Pulse Oximeter Pulse Oximetry (%) 96 Oxygen Delivery Method Room Air Intake Visit Reasons: Pain back/leg/thigh Intake Note: Pt is here today for a sick visit. Pt c/o R hip pain that goes down her leg. Pt also c/o lower back pain and neck pain. Allergies acetaminophen [From VICODIN] Allergy (Unknown, Verified 02/06/24 13:35) nausea confused hydrocodone [From VICODIN] Allergy (Unknown, Verified 02/06/24 13:35) nausea confused oxycodone [From PERCOCET] Allergy (Unknown, Verified 02/06/24 13:35) nausea, vomiting confused Medication List - Last Reconciled 02/06/24 by Sherry Cano MD amlodipine 5 mg PO DAILY atorvastatin 80 mg PO DAILY baclofen 10 mg PO BID diclofenac sodium 1% (Voltaren Arthritis Pain) 2 grams topical QID ketoconazole 2% 1 appl topical DAILY lidocaine 5% (Lidoderm) 1 patch topical DAILY meloxicam 15 mg PO DAILY metoprolol tartrate 25 mg PO BID omeprazole 40 mg PO DAILY pyridoxine (vitamin B6) 100 mg PO .QD ropinirole 0.5 mg PO BEDTIME sertraline (Zoloft) 50 mg PO DAILY trazodone 50 mg PO BEDTIME PRN Tobacco use date assessed: 02/06/24 Fall risk assessment: No Falls in past year Last assessed Fall Risk: 02/06/24 Dental Screening Dental Screen Date: 02/06/24 Did you have a dental visit in the last 12 months?: Yes Did you have a dental problem in the last 6 months where you did not have access to dental care?: No Was dental information given to patient?: Patient has dentist HPI Pain back/leg/thigh HPI Details Patient presents for the follow-up on hypertension hyperlipidemia chronic anxiety. She complains of chronic lower back pain and stiffness, bilateral hip pain worse when walking. She had chiropractic manipulation without relief. Patient tried cortisone injections in the past. She is going to [place] for 5 months. [facility] Medical History (Updated 02/06/24 @ 14:05 by Sherry Cano MD) Ingrown toenail of left foot Bilateral nephrolithiasis Annual physical exam Osteoarthritis, hip, bilateral Gastroesophageal reflux disease Lumbar disc disease Hypercholesteremia HTN (hypertension) GERD (gastroesophageal reflux disease) Surgical History H/O colonoscopy Hx of cholecystectomy Hx of cholecystectomy Family History Father High blood pressure Degenerative cervical spinal stenosis Heartburn Mother Heart problem Sister High blood pressure Daughter No problems noted. Daughter No problems noted. Daughter No problems noted. Social History Household Members: Spouse Housing: House Alcohol intake: former Patient Tobacco Use Status: Never used Tobacco Years Smoked: 30 years e-Cigarette/Vaping Use: Never Used service: No Current occupational status: retired Cognitive needs: No Hearing needs: No Vision needs: Yes Questionnaire Thrive Questionnaire Date Thrive assessed: 11/01/22 AUDIT C Alcohol Use Questionnaire (AUDIT-C) 1. How often do you have a drink containing alcohol?: Monthly or less 2. How many drinks containing alcohol do you have on a typical day when you are drinking?: 1 or 2 3. How often do you have six or more drinks on one occasion?: Never Total Score: 1 MICHAEL-7 AMB Questionnaire MICHAEL-7 Date MICHAEL - 7 assessed: 11/01/22 Source: Developed by Drs. Yimi Mathew, Ligia Corona, Alessio Burger and colleagues, with an educational sita from [employer]. Review of Systems Const All systems reviewed & are unremarkable except as noted in HPI and below ENT Reports no additional complaints Card Reports no additional complaints Resp Reports no additional complaints GI Reports no additional complaints Reports no additional complaints Physical exam (Primary Care) Vital Signs: Last Vital Signs Pulse 64 02/06/24 13:26 BP 112/64 02/06/24 13:26 Pulse Ox 96 02/06/24 13:26 Oxygen Delivery Method Room Air 02/06/24 13:26 BMI result Body Mass Index 31.5 Tobacco/Smoking Status: Tobacco use Status Tobacco use date assessed 02/06/24 02/06/24 13:38 Patient Tobacco Use Status Never used Tobacco 02/06/24 13:27 e-Cigarette/Vaping Use Never Used 02/06/24 13:27 Thrive Assessment: Date of Thrive Assessment Date Thrive assessed 11/01/22 02/06/24 13:27 Const General: no acute distress HENMT Head: Yes normal to inspection Mouth: Normal oral and palatal mucosa present Eyes General: appearance normal, both eyes and all related structures Neck Neck: Yes supple Resp Effort & Inspection: normal respiratory effort Auscultation: clear to auscultation bilaterally Cardio Rhythm: regular rhythm Heart sounds: S1 normal heart sound present and S2 normal heart sound present GI Inspection: Yes normal to inspection Palpation (GI): Soft to palpation Back/Spine/Pelvis Other: Paraspinal tenderness in lower lumbar region, straight leg rising 90 degrees bilaterally Assessment and Plan Assessment & Plan (1) Hypercholesteremia: Code(s): E78.00 - Pure hypercholesterolemia, unspecified Plan: CHANGE ATORVASTATIN TO CRESTOR 40 MG because of general myalgia. Lipid profile will be checked in July (2) HTN (hypertension): Code(s): I10 - Essential (primary) hypertension Plan: Continue current medications (3) Lumbar disc disease: Comment: 07/2020 MRI of T/L spine T12-L1 small disc herniation, L1-L5 multilevel degenerative disc desiccation, mild spinal stenosis Code(s): M51.9 - Unspecified thoracic, thoracolumbar and lumbosacral intervertebral disc disorder Plan: PT was recommended but patient is going to [place] (4) Positive colorectal cancer screening using Cologuard test: Comment: 01/23 referred to GI Code(s): R19.5 - Other fecal abnormalities Plan: She was referred to GI for colonoscopy (5) Arthralgia: Code(s): M25.50 - Pain in unspecified joint Orders: Orders Lipid Panel 5 Months E55.9 - Vitamin D deficiency, unspecified, E78.00 - Pure hypercholesterolemia, unspecified, I10 - Essential (primary) hypertension Comprehensive [place]. Panel Fast 5 Months E55.9 - Vitamin D deficiency, unspecified, E78.00 - Pure hypercholesterolemia, unspecified, I10 - Essential (primary) hypertension Complete Blood Count Auto Diff 5 Months E55.9 - Vitamin D deficiency, unspecified, E78.00 - Pure hypercholesterolemia, unspecified, I10 - Essential (primary) hypertension Vitamin D 25-OH Total 5 Months E55.9 - Vitamin D deficiency, unspecified, E78.00 - Pure hypercholesterolemia, unspecified, I10 - Essential (primary) hypertension TSH reflex Free T4 5 Months E55.9 - Vitamin D deficiency, unspecified, E78.00 - Pure hypercholesterolemia, unspecified, I10 - Essential (primary) hypertension Hemoglobin A1c 5 Months E55.9 - Vitamin D deficiency, unspecified, E78.00 - Pure hypercholesterolemia, unspecified, I10 - Essential (primary) hypertension C Reactive Protein 5 Months M25.50 - Pain in unspecified joint Medications: New rosuvastatin (Crestor) 40 mg PO DAILY 90 tabs 1RF Refilled meloxicam 15 mg PO DAILY 30 tabs 0RF Discontinued atorvastatin Discontinued Reason: Doctor's Order 80 mg PO DAILY 90 tabs 3RF trazodone Discontinued Reason: Doctor's Order 50 mg PO BEDTIME PRN 90 tabs 3RF for insomnia Coding Level of Care Code Est Pt Level 4 (49832) Diagnoses Hypercholesteremia E78.00 HTN (hypertension) I10 Lumbar disc disease M51.9 Positive colorectal cancer screening using Cologuard test R19.5 Arthralgia M25.50
== END 2024-02-06 14:06 | disposition home or self-care (01) ==
PROVIDERS: PCP Internal Medicine; Visit Provider Internal Medicine
DX: E78.00 Pure hypercholesterolemia, unspecified (principal); I10 Essential (primary) hypertension; M51.9 Unspecified thoracic, thoracolumbar and lumbosacral intervertebral disc disorder; R19.5 Other fecal abnormalities; M25.50 Pain in unspecified joint
CPT/HCPCS: 99214

== ENCOUNTER 2025-01-27 11:28 | Outpatient (AMB) | payer MEDICARE, SELFPAY ==
[2025-01-27 11:59] VITALS: BP 136/80; PULSE 66; O2SAT 97; BMI 30.1
--- NOTE | 2025-01-27 11:59 | A.OFFPC_ITS ---
Vital Signs 01/27/25 11:59 Height 5 ft 3 in Weight 170 lb BMI 30.1 BP 136/80 Blood Pressure Location Lt brachial Position Sitting Pulse 66 Pulse Source Pulse Oximeter Pulse Oximetry (%) 97 Oxygen Delivery Method Room Air Intake Visit Reasons: Follow Up Bowling Ball Mold Assembler Required: No Accompanied by: Self / Same As Patient Allergies acetaminophen [From VICODIN] Allergy (Unknown, Verified 01/27/25 12:00) nausea confused hydrocodone [From VICODIN] Allergy (Unknown, Verified 01/27/25 12:00) nausea confused oxycodone [From PERCOCET] Allergy (Unknown, Verified 01/27/25 12:00) nausea, vomiting confused Medication List - Last Reconciled 01/27/25 by Sherry Cano MD amlodipine 5 mg PO DAILY baclofen 10 mg PO BID diclofenac sodium 1% (Voltaren Arthritis Pain) 2 grams topical QID ketoconazole 2% 1 appl topical DAILY lidocaine 5% (Lidoderm) 1 patch topical DAILY meloxicam 15 mg PO DAILY metoprolol tartrate 25 mg PO BID omeprazole 40 mg PO DAILY pyridoxine (vitamin B6) 100 mg PO .QD ropinirole 0.5 mg PO BEDTIME ropinirole 1 mg PO BEDTIME rosuvastatin (Crestor) 40 mg PO DAILY sertraline (Zoloft) 50 mg PO DAILY Tobacco use date assessed: 01/27/25 Fall risk assessment: No Falls in past year Last assessed Fall Risk: 01/27/25 Dental Screening Dental Screen Date: 01/27/25 Did you have a dental visit in the last 12 months?: Yes Did you have a dental problem in the last 6 months where you did not have access to dental care?: No Was dental information given to patient?: Patient has dentist HPI Follow Up HPI Details Pt presents for f/u HTN, hyperlipid,chronic anxiety, stable on meds. Patient is going to [place] in January for the summer [facility] Medical History Ingrown toenail of left foot Bilateral nephrolithiasis Annual physical exam Osteoarthritis, hip, bilateral Gastroesophageal reflux disease Lumbar disc disease Hypercholesteremia HTN (hypertension) GERD (gastroesophageal reflux disease) Surgical History H/O colonoscopy Hx of cholecystectomy Hx of cholecystectomy Family History Father High blood pressure Degenerative cervical spinal stenosis Heartburn Mother Heart problem Sister High blood pressure Daughter No problems noted. Daughter No problems noted. Daughter No problems noted. Social History Household Members: Spouse Housing: House Alcohol intake: former Patient Tobacco Use Status: Never used Tobacco Years Smoked: 30 years e-Cigarette/Vaping Use: Never Used service: No Current occupational status: retired Cognitive needs: No Hearing needs: No Vision needs: Yes Questionnaire PHQ-9 Over the last 2 weeks, how often have you been bothered by any of the following problems? 1. Little interest or pleasure in doing things: not at all 2. Feeling down, depressed, or hopeless: not at all 3. Trouble falling or staying asleep, or sleeping too much: not at all 4. Feeling tired or having little energy: not at all 5. Poor appetite or overeating: not at all 6. Feeling bad about yourself - or that you are a failure or have let yourself or your family down: not at all 7. Trouble concentrating on things, such as reading the newspaper or watching television: not at all 8. Moving or speaking so slowly that other people could have noticed. Or the opposite - being so fidgety or restless that you have been moving around a lot more than usual: not at all 9. Thoughts that you would be better off or of hurting yourself in some way: not at all Total score: 0 Depression Screening Interpretation: Negative Depression Screening Done: Yes 40208 - PHQ-9 Billing: Yes Source: Developed by Drs. Yimi Mathew, Ligia Corona, Alessio Burger and colleagues, with an educational sita from [facility]. Thrive Questionnaire Date Thrive assessed: 01/27/25 I am a: Patient What is your living situation today?: I have a steady place to live Within the past 12 months, did the food you bought not last and you didn't have the money to get more?: Never true Within the past 12 months, did you worry whether your food would run out before you got money to buy more?: Never true Do you have trouble paying for medicines?: No Do you have trouble getting transportation to medical appointments?: No Do you have trouble paying your heating and electricity bill?: No Do you have trouble taking care of your child, family member or friend?: No Do you have trouble with day-to-day activities such as bathing, preparing meals, shopping, managing finances, etc.?: No Are you currently unemployed and looking for a job?: No Are you interested in more education?: No Please select the resources that you would like help with: None Currently or been in a relationship where the following occur: No concerns reported THRIVE Score: 0 AUDIT C Alcohol Use Questionnaire (AUDIT-C) 1. How often do you have a drink containing alcohol?: Monthly or less 2. How many drinks containing alcohol do you have on a typical day when you are drinking?: 1 or 2 3. How often do you have six or more drinks on one occasion?: Never Total Score: 1 Score Reviewed/Action Taken: Yes MICHAEL-7 AMB Questionnaire MICHAEL-7 Date MICHAEL - 7 assessed: 01/27/25 (patient declined) Source: Developed by Drs. Yimi Mathew, Ligia Corona, Alessio Burger and colleagues, with an educational sita from [facility]. Physical exam (Primary Care) Vital Signs: Last Vital Signs Pulse 66 01/27/25 11:59 BP 136/80 01/27/25 11:59 Pulse Ox 97 01/27/25 11:59 Oxygen Delivery Method Room Air 01/27/25 11:59 BMI result Body Mass Index 30.1 Tobacco/Smoking Status: Tobacco use Status Tobacco use date assessed 01/27/25 01/27/25 12:02 Patient Tobacco Use Status Never used Tobacco 01/27/25 11:59 e-Cigarette/Vaping Use Never Used 01/27/25 11:59 PHQ-9: PHQ-9 Score PHQ-9: Total score 0 01/27/25 12:30 Depression Screening Interpretation: Negative Thrive Assessment: Date of Thrive Assessment Date Thrive assessed 01/27/25 01/27/25 12:07 Currently or been in a relationship where the following occur: No concerns reported Const General: no acute distress HENMT Head: Yes normal to inspection Mouth: Normal oral and palatal mucosa present Eyes General: appearance normal, both eyes and all related structures Neck Neck: Yes no lymphadenopathy and Yes supple Resp Effort & Inspection: normal respiratory effort Auscultation: clear to auscultation bilaterally Cardio Rhythm: regular rhythm Heart sounds: S1 normal heart sound present and S2 normal heart sound present GI Inspection: Yes normal to inspection Coding Level of Care Code Est Pt Level 4 (80392) Diagnoses HTN (hypertension) I10 Hypercholesteremia E78.00 Restless leg syndrome G25.81 Additional Codes PHQ-9 - 74263 - PHQ-9 Billing: Yes ([id number]) Assessment & Plan Assessment & Plan (1) HTN (hypertension): Code(s): I10 - Essential (primary) hypertension Category: Medical Plan: Continue current medications (2) Hypercholesteremia: Code(s): E78.00 - Pure hypercholesterolemia, unspecified Category: Medical Plan: Continue statin (3) Restless leg syndrome: Code(s): G25.81 - Restless legs syndrome Category: Medical Plan: Increase ropinirole to 1 mg q.h.s. Orders: Orders Lipid Panel Today E78.00 - Pure hypercholesterolemia, unspecified, I10 - Essential (primary) hypertension Comprehensive Met. Panel Today E78.00 - Pure hypercholesterolemia, unspecified, I10 - Essential (primary) hypertension Medications: New ropinirole administer 1-3 hours before bedtime 1 mg PO BEDTIME 90 tabs 1RF Refilled metoprolol tartrate 25 mg PO BID 180 tabs 3RF amlodipine 5 mg PO DAILY 90 tabs 3RF Discontinued ropinirole administer 1-3 hours before bedtime Discontinued Reason: Doctor's Order 0.5 mg PO BEDTIME 90 tabs 3RF
--- OUTSIDE RECORDS SUMMARY | 2025-01-27 13:52 | XMS_ITS | Clinical Summary ---
Author Organization [facility] Address [address] [place] [address] Care Team Providers Care Groover And Turner Name Role Phone AvelKelle Ewing DO Primary Care Pro vider Social History Tobacco Use Types Packs/Day Years Used Date Smoking Tobacco: Never Assessed Comments Unknown Sex and Gender Information Value Date Recorded Sex Assigned at Not on file Legal Sex Female 12:32 AM EST Gender Identity Not on file Sexual Orientation Not on file Plan of Treatment Health Maintenance Due Date Last Done Comments DTaP,Tdap,and Td Vaccines (1 - Tdap) 01/13/1975 Pneumococcal Vaccine: 50+ Years (1 of 1 - PCV) 01/13/2006 Zoster Vaccines (1 of 2) 01/13/2006 Breast Cancer Screening 02/22/2019 02/23/20 17, 02/08/2017 Colorectal Cancer Screening: Colonoscopy 04/30/2024 Depression Screening 04/30/2024 Falls Risk Assessment 04/30/2024 Hepatitis C Screening 04/30/2024 Osteoporosis Screening (Bone Density Screening) 04/30/2024 Social Influencers of Health Screening 04/30/2024 COVID-19 Vaccine ( - 2023-2 5 season) 2024 Influenza Vaccine (Season Ended) 2025 RSV Immunization Adult Patients (1 - 1-dose 75+ series) 01/13/2031 HIB Vaccines Aged Out No longer eligi ble based on patient's age to complete this topic HPV Vaccines Aged Out No longer eligi ble based on patient's age to complete this topic Hepatitis A Vaccines Aged Out No long er eligible based on patient's age to complete this topic Hepatitis B Vaccines Aged Out No long er eligible based on patient's age to complete this topic IPV Vaccines Aged Out No longer eligi ble based on patient's age to complete this topic MMR Vaccines Aged Out No longer eligi ble based on patient's age to complete this topic Meningococcal ACWY Vaccine Aged Out N o longer eligible based on patient's age to complete this topic Meningococcal B Vaccine Aged Out No l onger eligible based on patient's age to complete this topic RSV Immunization Patients Under 20 months Aged Out No longer eligible b ased on patient's age to complete this topic Varicella Vaccines Aged Out No longer eligible based on patient's age to complete this topic Procedures Procedure Name Priority Date/Time Associated Diagnosis Comments DX MAMMO INCL CAD UNI Routine 02/22/2017 10:02 AM EDT Breast lump from Last 3 Months or Most Recently Relevant to Health Maintenance Results * DX MAMMO INCL CAD UNI (02/22/2017 10:02 AM EDT) Anatomical Region Laterality Modality Mammography 02/08/2017 11:2 5 AM EDT Narrative 02/22/2017 10:07 AM EDT Please see combined report, same date. Procedure Note Merle Morales MD - 11/03/2023 Please see combined report, same date. Judi Gallardo MD IMG BI PROCEDURES Final Resul t from Last 3 Months or Most Recently Relevant to Health Maintenance Care Teams Groover And Turner Relationship Specialty Start Date End Date Kelle Velasquez DO PCP - General Internal Medicine 01/03/14
--- OUTSIDE RECORDS SUMMARY | 2025-01-27 13:52 | XMS_ITS | Clinical Summary ---
Author Organization [facility] Address [address] [place] [address] Care Team Providers Care Installer Helper Name Role Phone Sherry Cano MD Primary Care Provider [phone] Social History Tobacco Use Types Packs/Day Years Used Date Smoking Tobacco: Never Assessed Sex and Gender Information Value Date Recorded Sex Assigned at Not on file Gender Identity Not on file Sexual Orientation Not on file Job Start Date Occupation Industry Not on file Not on file Not on file Plan of Treatment Health Maintenance Due Date Last Done Comments Hepatitis C Screening 1955 COVID-19 Vaccine (#1) 1955 Depression Screening 1968 Preventative Health Evaluation 01/13/1974 DTap / Tdap / Td (1 - Tdap) 01/13/1975 Colon Cancer Screening (Colonoscopy) 01/13/2001 Breast Cancer Screening (Mammogram) 01/13/2006 Shingrix-Zoster Vaccine (1 of 2) 01/13/2006 Fall Risk Assessment 01/13/2021 Osteoporosis Screening (DEXA Scan) 01/13/2021 Pneumococcal Vaccine (1 of 1 - PCV) 01/13/2021 Influenza Vaccine (#1) 2024 RSV Adult > 60+ Yrs or Pregn ant (1 - 1-dose 75+ series) 01/13/2031 Hepatitis B Vaccines Aged Out No long er eligible based on patient's age to complete this topic RSV Ped < 20 months Aged Out No longe r eligible based on patient's age to complete this topic Care Teams Installer Helper Relationship Specialty Start Date End Date Sherry Cano MD [address] [place] [address] PCP - General Departmental Secretary 07/24/20
== END 2025-01-27 14:32 | disposition home or self-care (01) ==
LOC: HO.HMCC 11:28
PROVIDERS: PCP Internal Medicine; Visit Provider Internal Medicine
DX: I10 Essential (primary) hypertension (principal); E78.00 Pure hypercholesterolemia, unspecified; G25.81 Restless legs syndrome

== ENCOUNTER → 2025-01-27 11:28 | Outpatient (BNVA) | payer MEDICARE, SELFPAY | PROVIDERS: PCP Internal Medicine; Visit Provider Internal Medicine | DX: I10 Essential (primary) hypertension (principal); E78.00 Pure hypercholesterolemia, unspecified; G25.81 Restless legs syndrome | CPT/HCPCS: 96127; 99212 ==

== ENCOUNTER 2025-09-22 10:49 | Outpatient (AMB) | payer MEDICARE, SELFPAY ==
[2025-09-22 11:04] VITALS: BP 124/66; PULSE 67; RESP 17; O2SAT 96; BMI 28.7
--- NOTE | 2025-09-22 11:04 | A.OFFPC_ITS ---
Vital Signs 09/22/25 11:04 Height 5 ft 3 in Weight 162 lb BMI 28.7 BP 124/66 Blood Pressure Location Rt brachial Position Sitting Respiration 17 Pulse 67 Pulse Source Pulse Oximeter Pulse Oximetry (%) 96 Oxygen Delivery Method Room Air Intake Visit Reasons: medication review Intake Note: Pt is here today for a follow up visit. Allergies acetaminophen (From VICODIN) Allergy (Unknown, Verified 09/22/25 11:22) nausea confused hydrocodone (From VICODIN) Allergy (Unknown, Verified 09/22/25 11:22) nausea confused oxycodone (From PERCOCET) Allergy (Unknown, Verified 09/22/25 11:22) nausea, vomiting confused Medication List - Last Reconciled 09/22/25 by Sherry Cano MD amlodipine 5 mg PO DAILY baclofen 10 mg PO BID diclofenac sodium 1% (Voltaren Arthritis Pain) 2 grams topical QID ketoconazole 2% 1 appl topical DAILY lidocaine 5% (Lidoderm) 1 patch topical DAILY meloxicam 15 mg PO DAILY metoprolol tartrate 25 mg PO BID omeprazole 40 mg PO DAILY pyridoxine (vitamin B6) 100 mg PO .QD ropinirole 1 mg PO QPM rosuvastatin (Crestor) 40 mg PO DAILY sertraline (Zoloft) 50 mg PO DAILY Tobacco use date assessed: 09/22/25 Fall risk assessment: 1 Fall in past year Last assessed Fall Risk: 09/22/25 Dental Screening Dental Screen Date: 01/27/25 HPI medication review HPI Details Patient presents for the follow-up on hypertension hyperlipidemia chronic anxiety restless leg syndrome stable on current medications. She complains of chronic mid back pain worse when standing for long time. She denies weakness or numbness in extremities, change in bowel or bladder function. [facility] Medical History Positive colorectal cancer screening using Cologuard test Colon polyp Ingrown toenail of left foot Bilateral nephrolithiasis Annual physical exam Osteoarthritis, hip, bilateral Gastroesophageal reflux disease Lumbar disc disease Hypercholesteremia HTN (hypertension) GERD (gastroesophageal reflux disease) Surgical History H/O colonoscopy Hx of cholecystectomy Hx of cholecystectomy Family History Father High blood pressure Degenerative cervical spinal stenosis Heartburn Mother Heart problem Sister High blood pressure Daughter No problems noted. Daughter No problems noted. Daughter No problems noted. Social History Household Members: Spouse Housing: House Alcohol intake: former Patient Tobacco Use Status: Never used Tobacco Years Smoked: 30 years e-Cigarette/Vaping Use: Never Used service: No Current occupational status: retired Cognitive needs: No Hearing needs: No Vision needs: Yes Questionnaire Thrive Questionnaire Date Thrive assessed: 01/27/25 MICHAEL-7 AMB Questionnaire MICHAEL-7 Date MICHAEL - 7 assessed: 01/27/25 (patient declined) Source: Developed by Drs. Yimi Mathew, Ligia Corona, Alessio Burger and colleagues, with an educational sita from [employer]. Review of Systems Const All systems reviewed & are unremarkable except as noted in HPI and below Eyes Reports no additional complaints ENT Reports no additional complaints Card Reports no additional complaints Resp Reports no additional complaints GI Reports no additional complaints Reports no additional complaints Physical exam (Primary Care) Vital Signs: Last Vital Signs Pulse 67 09/22/25 11:04 Resp 17 09/22/25 11:04 BP 124/66 09/22/25 11:04 Pulse Ox 96 09/22/25 11:04 Oxygen Delivery Method Room Air 09/22/25 11:04 BMI result Body Mass Index 28.7 Tobacco/Smoking Status: Tobacco use Status Tobacco use date assessed 09/22/25 09/22/25 11:08 Patient Tobacco Use Status Never used Tobacco 09/22/25 11:04 e-Cigarette/Vaping Use Never Used 09/22/25 11:04 Thrive Assessment: Date of Thrive Assessment Date Thrive assessed 01/27/25 09/22/25 11:04 Const General: no acute distress HENMT Head: Yes normal to inspection Throat: Yes posterior oropharynx normal Neck Neck: Yes supple Resp Effort & Inspection: normal respiratory effort Auscultation: clear to auscultation bilaterally Cardio Rhythm: regular rhythm Heart sounds: S1 normal heart sound present and S2 normal heart sound present GI Inspection: Yes normal to inspection Palpation (GI): Soft to palpation Percussion: Yes normal to percussion Auscultation: normal bowel sounds Back/Spine/Pelvis Other: Tenderness in paraspinal thoracic region bilaterally. Coding Level of Care Code Est Pt Level 4 (38775) Diagnoses HTN (hypertension) I10 Hypercholesteremia E78.00 Thoracic back pain M54.6 Assessment & Plan Assessment & Plan (1) HTN (hypertension): Code(s): I10 - Essential (primary) hypertension Category: Medical Plan: Continue current medications (2) Hypercholesteremia: Code(s): E78.00 - Pure hypercholesterolemia, unspecified Category: Medical Plan: Continue statin (3) Thoracic back pain: Code(s): M54.6 - Pain in thoracic spine Category: Medical Plan: For chronic midthoracic back pain obtain x-ray of thoracic spine and referred to physical therapy Orders: Orders Comprehensive Orange. Panel Fast Today E55.9 - Vitamin D deficiency, unspecified, E78.00 - Pure hypercholesterolemia, unspecified, I10 - Essential (primary) hypertension Complete Blood Count Auto Diff Today E55.9 - Vitamin D deficiency, unspecified, E78.00 - Pure hypercholesterolemia, unspecified, I10 - Essential (primary) hypertension Microalbumin, Random (w Creat) Today E55.9 - Vitamin D deficiency, unspecified, E78.00 - Pure hypercholesterolemia, unspecified, I10 - Essential (primary) hypertension UA w Microscopic Today E55.9 - Vitamin D deficiency, unspecified, E78.00 - Pure hypercholesterolemia, unspecified, I10 - Essential (primary) hypertension PT Evaluation and Treatment Today M54.6 - Pain in thoracic spine Vitamin B12 and Folate Today E53.8 - Deficiency of other specified B group vitamins, E55.9 - Vitamin D deficiency, unspecified IRON PROFILE Today E53.8 - Deficiency of other specified B group vitamins, E55.9 - Vitamin D deficiency, unspecified Lipid Panel Today E55.9 - Vitamin D deficiency, unspecified, E78.00 - Pure hypercholesterolemia, unspecified, I10 - Essential (primary) hypertension Hemoglobin A1c Today E55.9 - Vitamin D deficiency, unspecified, E78.00 - Pure hypercholesterolemia, unspecified, I10 - Essential (primary) hypertension TSH reflex Free T4 Today E55.9 - Vitamin D deficiency, unspecified, E78.00 - Pure hypercholesterolemia, unspecified, I10 - Essential (primary) hypertension XR thoracic spine 2V Today M54.6 - Pain in thoracic spine Vitamin D 25-OH Total Today E53.8 - Deficiency of other specified B group vitamins, E55.9 - Vitamin D deficiency, unspecified Medications: Refilled rosuvastatin (Crestor) 40 mg PO DAILY 90 tabs 3RF sertraline (Zoloft) 50 mg PO DAILY 90 tabs 3RF pyridoxine (vitamin B6) 100 mg PO .QD 90 tabs 3RF amlodipine 5 mg PO DAILY 90 tabs 3RF metoprolol tartrate 25 mg PO BID 180 tabs 3RF ropinirole 1 mg PO QPM 90 tabs 3RF omeprazole 40 mg PO DAILY 90 caps 3RF
--- OUTSIDE RECORDS SUMMARY | 2025-09-22 13:33 | XMS_ITS | Clinical Summary ---
Author Organization [facility] Prior to 03/01/25 Address [address] [place] [address] Care Team Providers Care Cephalometric Technician Name Role Phone Sherry Cano MD Primary Care Provider [phone] Social History Tobacco Use Types Packs/Day Years [...] 1 - PCV) 01/13/2021 Influenza Vaccine (#1) 2025 RSV Adult > 60+ Yrs or Pregn ant (1 - 1-dose 75+ series) 01/13/2031 Hepatitis B Vaccines Aged Out No long er eligible based on patient's age to complete this topic RSV Ped < 20 months Aged Out No longe r eligible based on patient's age to complete this topic Care Teams Cephalometric Technician Relationship Specialty Start Date End Date Sherry Cano MD [address] [place] [address] PCP - General Architecture Analyst 07/24/20
--- OUTSIDE RECORDS SUMMARY | 2025-09-22 13:33 | XMS_ITS | Clinical Summary ---
Author Organization [facility] Address [address] [place] [address] Care Team Providers Care Engine Dynamometer Tester Name Role Phone AvelKelle Ewing DO Primary [...] Health Maintenance Due Date Last Done Comments Colorectal Cancer Screening: Colonoscopy 1956 DTaP,Tdap,and Td Vaccines (1 - Tdap) 01/13/1975 Pneumococcal Vaccine: 50+ Years (1 of 1 - PCV) 01/13/2006 Zoster Vaccines (1 of 2) 01/13/2006 Breast Cancer Screening 02/22/2019 02/23/20 17, 02/08/2017 Falls Risk Assessment 04/30/2024 Hepatitis C Screening 04/30/2024 Osteoporosis Screening (Bone Density Screening) 04/30/2024 Social Influencers of Health Screening 04/30/2024 Depression Screening 10/02/2024 COVID-19 Vaccine ( - 2024-2 6 season) 2025 Influenza Vaccine (#1) 2025 RSV Immunization Adult Patients (1 - [...] Recently Relevant to Health Maintenance Care Teams Engine Dynamometer Tester Relationship Specialty Start Date End Date Kelle Velasquez DO PCP - General Internal Medicine 01/03/14
== END 2025-09-22 12:03 | disposition home or self-care (01) ==
LOC: HO.HMCC 10:50
PROVIDERS: PCP Internal Medicine; Visit Provider Internal Medicine
DX: I10 Essential (primary) hypertension (principal); E78.00 Pure hypercholesterolemia, unspecified; M54.6 Pain in thoracic spine

== ENCOUNTER → 2025-09-22 10:49 | Outpatient (BNVA) | payer MEDICARE, SELFPAY | PROVIDERS: PCP Internal Medicine; Visit Provider Internal Medicine | DX: Z71.89 Other specified counseling (principal); I10 Essential (primary) hypertension; G25.81 Restless legs syndrome; F41.9 Anxiety disorder, unspecified; E78.00 Pure hypercholesterolemia, unspecified; M54.6 Pain in thoracic spine; E55.9 Vitamin D deficiency, unspecified; Z79.899 Other long term (current) drug therapy | CPT/HCPCS: 99212 ==